=== PATIENT | male | born 2000 | race African-American/Black ===

== ENCOUNTER 2023-02-25 08:44 | Emergency (ER) | payer OTHER ==
[~2023-02-25] VITALS: Ht 188 cm; Wt 66.2 kg
[2023-02-25] MEDS ORDERED: Morphine 4mg INJECTION 4 MG/ML INJ IV STA (09:13)
[2023-02-25] MEDS ORDERED: KETOROLAC TROMETHAMINE 30 MG/ML VIAL IV STA (09:13)
[2023-02-25] MEDS ORDERED: ONDANSETRON HCL INJ 2MG/ML 2ML 2 MG/ML VIAL IV STA (09:13)
[2023-02-25] MEDS ORDERED: DEXTROSE 5%/0.45% SOD CHL 1,000 ML IV ONE (09:15)
[2023-02-25 09:19] LABS: BASOPHILS # (AUTO) 0.1 (0.0-0.1); BASOPHILS % 0.4 % (0.0-1.0); EOSINOPHILS # (AUTO) 0.1 (0.0-0.4); EOSINOPHILS % 0.5 % (0.0-6.0); HEMATOCRIT 27.6 % (38.2-49.6); HEMOGLOBIN 9.5 g/dL (14.0-18.0); LYMPHOCYTES # (AUTO) 2.1 (1.0-3.2); LYMPHOCYTES % 13.9 % (18.0-39.1); MEAN CORPUSCULAR HEMOGLOBIN 27.6 pg (28-32); MEAN CORPUSCULAR HGB CONC 34.4 g/dL (31-35); MEAN CORPUSCULAR VOLUME 80.2 fL (81-99); MONOCYTES # (AUTO) 1.4 (0.2-0.8); MONOCYTES % 9.4 % (4.4-11.3); NEUTROPHILS # (AUTO) 11.2 (2.1-6.9); NEUTROPHILS % 75.3 % (38.7-80.0); PLATELET COUNT 609 x10e3/uL (140-360); RED BLOOD COUNT 3.44 x10e6/uL (4.3-5.7); RED CELL DISTRIBUTION WIDTH 19.9 % (11.7-14.4)
[2023-02-25 09:34] LABS: CLARITY,URINE CLEAR (CLEAR); COLOR,URINE YELLOW (YELLOW)
[2023-02-25 09:35] LABS: KETONES,URINE NEGATIVE (NEGATIVE); LEUKOCYTE ESTERASE ,URINE NEGATIVE (NEGATIVE); NITRITE,URINE NEGATIVE (NEGATIVE); PROTEIN,URINE DIPSTICK NEGATIVE (NEGATIVE); URINE UROBILINOGEN 0.2 mg/dL (0.2 - 1)
[2023-02-25 09:36] LABS: AMPHETAMINES SCREEN,URINE NEGATIVE (NEGATIVE); BENZODIAZEPINES SCREEN,URINE NEGATIVE (NEGATIVE); PHENCYCLIDINE SCREEN,URINE NEGATIVE (NEGATIVE)
[2023-02-25 09:41] LABS: ALANINE AMINOTRANSFERASE 29 IU/L (0-55); ALBUMIN 3.8 g/dL (3.5-5.0); ALBUMIN/GLOBULIN RATIO 0.8 (0.8-2.0); ALKALINE PHOSPHATASE 77 IU/L (40-150); ANION GAP 14.6 mmol/L (8-16); BLOOD UREA NITROGEN 10 mg/dL (7-26); BUN/CREATININE RATIO 14 (6-25); CALCIUM 9.5 mg/dL (8.4-10.2); CARBON DIOXIDE 23 mmol/L (22-29); CHLORIDE 103 mmol/L (98-107); CREATININE, SERUM 0.74 mg/dL (0.72-1.25); GLUCOSE 96 mg/dL (74-118); POTASSIUM 4.6 mmol/L (3.5-5.1); SODIUM 136 mmol/L (136-145)
[2023-02-25 09:43] LABS: EPITHELIAL CELLS,URINE FEW /LPF
[2023-02-25 09:46] LABS: BACTERIA,URINE MODERATE /HPF
[2023-02-25] MEDS ORDERED: HYDROCODONE/APAP 7.5MG-325MG 1 EA TAB PO ONE (10:45)
[2023-02-25 11:18] VITALS: BP 124/55; PULSE 55; RESP 18; TEMP 98.2; O2SAT 100
== END 2023-02-25 11:19 | disposition home or self-care (01) ==
LOC: ER 08:47
DX: R50.9 Fever, unspecified (principal); D57.00 Hb-SS disease with crisis, unspecified
CPT/HCPCS: 36415; 71045; 80053; 80307; 81001; 84484; 85025; 85045; 87086; 93005; 99284; J1885; J2270; J2405

== ENCOUNTER 2023-06-25 21:18 | Inpatient (IN) | payer OTHER ==
[~2023-06-25] VITALS: Ht 182.9 cm; Wt 80.3 kg
[~2023-06-25 21:18] MED LIST: AUGMENTIN 500-1 EACH PO; FOLIC ACID0.8 MG PO; MOTRIN200 MG PO
[2023-06-25] MEDS ORDERED: SODIUM CHLORIDE 0.9% 1000ML 1,000 ML IV STA ×2 (21:24→21:54)
[2023-06-25] MEDS ORDERED: ONDANSETRON HCL INJ 2MG/ML 2ML 2 MG/ML VIAL IV STA (21:30)
[2023-06-25] MEDS ORDERED: Morphine 4mg INJECTION 4 MG/ML INJ IV STA (21:30)
[2023-06-25] MEDS ORDERED: Morphine 4mg INJECTION 4 MG/ML INJ ONE (21:39)
[2023-06-25] MEDS ORDERED: ACETAMINOPHEN 325 MG TAB PO ONE (22:00)
[2023-06-25 22:13] LABS: BASOPHILS % 0.2 % (0.0-1.0); HEMATOCRIT 29.3 % (38.2-49.6); HEMOGLOBIN 10.6 g/dL (14.0-18.0); LYMPHOCYTES # (AUTO) 1.5 (1.0-3.2); LYMPHOCYTES % 9.5 % (18.0-39.1); MEAN CORPUSCULAR HEMOGLOBIN 28.7 pg (28-32); MEAN CORPUSCULAR HGB CONC 36.2 g/dL (31-35); MEAN CORPUSCULAR VOLUME 79.4 fL (81-99); MONOCYTES % 12.9 % (4.4-11.3); NEUTROPHILS # (AUTO) 12.2 (2.1-6.9); NEUTROPHILS % 76.7 % (38.7-80.0); PLATELET COUNT 224 x10e3/uL (140-360); RED BLOOD COUNT 3.69 x10e6/uL (4.3-5.7); RED CELL DISTRIBUTION WIDTH 18.9 % (11.7-14.4); WHITE BLOOD COUNT 15.87 x10e3/uL (4.8-10.8)
[2023-06-25 22:30] LABS: ALBUMIN 4.2 g/dL (3.5-5.0); ALBUMIN/GLOBULIN RATIO 0.9 (0.8-2.0); ANION GAP 17.2 mmol/L (8-16); CALCIUM 9.4 mg/dL (8.4-10.2); CREATININE, SERUM 0.78 mg/dL (0.72-1.25); POTASSIUM 4.2 mmol/L (3.5-5.1)
[2023-06-25] MEDS ORDERED: FUROSEMIDE INJ 10 MG/ML 4 ML VIAL IV STA (22:44)
[2023-06-25] MEDS ORDERED: SODIUM CHLORIDE FLUSH 10 ML SYR INJ PRN (22:45)
[2023-06-25] MEDS: HYDROMORPHONE 1MG/1ML INJ IV PRN (23:06)
[2023-06-25] MEDS: LEVOFLOXACIN 750MG/D5W 150ML 150 ML IV SCH (23:14)
[2023-06-25] MEDS ORDERED: IBUPROFEN 400 MG TAB PO STA (23:39)
[2023-06-26] VITALS (12 sets, daily range): BP systolic 107–127; BP diastolic 56–68; PULSE 67–94; RESP 16–24; TEMP 97.7–103.1; O2SAT 95–99
[2023-06-26 01:48] LABS: CREATINE KINASE 44 IU/L (30-200)
[2023-06-26 07:53] LABS: BASOPHILS % 0.2 % (0.0-1.0); EOSINOPHILS % 0.1 % (0.0-6.0); HEMATOCRIT 25.5 % (38.2-49.6); HEMOGLOBIN 9.2 g/dL (14.0-18.0); LYMPHOCYTES # (AUTO) 3.5 (1.0-3.2); LYMPHOCYTES % 20.6 % (18.0-39.1); MEAN CORPUSCULAR HGB CONC 36.1 g/dL (31-35); MEAN CORPUSCULAR VOLUME 80.4 fL (81-99); MONOCYTES # (AUTO) 2.4 (0.2-0.8); MONOCYTES % 14.4 % (4.4-11.3); NEUTROPHILS # (AUTO) 10.8 (2.1-6.9); NEUTROPHILS % 64.3 % (38.7-80.0); PLATELET COUNT 229 x10e3/uL (140-360); RED BLOOD COUNT 3.17 x10e6/uL (4.3-5.7); RED CELL DISTRIBUTION WIDTH 18.1 % (11.7-14.4); WHITE BLOOD COUNT 16.83 x10e3/uL (4.8-10.8)
[2023-06-26 08:07] LABS: ALBUMIN 3.6 g/dL (3.5-5.0); ALBUMIN/GLOBULIN RATIO 0.8 (0.8-2.0); ANION GAP 15.4 mmol/L (8-16); CALCIUM 8.9 mg/dL (8.4-10.2); CREATININE, SERUM 1.08 mg/dL (0.72-1.25); POTASSIUM 4.4 mmol/L (3.5-5.1)
[2023-06-26 08:30] LABS: CREATINE KINASE 40 IU/L (30-200)
[2023-06-26] MEDS: HYDROMORPHONE 1MG/1ML INJ IV PRN ×3 (09:32→22:49)
[2023-06-26] MEDS: ONDANSETRON HCL INJ 2MG/ML 2ML 2 MG/ML VIAL IV PRN ×3 (09:32→22:49)
[2023-06-26] MEDS: ACETAMINOPHEN 325 MG TAB PO PRN (15:19)
[2023-06-26 15:29] LABS: CREATINE KINASE 113 IU/L (30-200)
[2023-06-26] MEDS: LEVOFLOXACIN 750MG/D5W 150ML 150 ML IV SCH (22:48)
[2023-06-27] VITALS (7 sets, daily range): BP systolic 117–133; BP diastolic 61–85; PULSE 67–100; RESP 16–18; TEMP 99.1–99.9; O2SAT 95–100
[2023-06-27] MEDS: ACETAMINOPHEN 325 MG TAB PO PRN ×3 (00:33→12:33)
[2023-06-27 05:00] LABS: BASOPHILS % 0.3 % (0.0-1.0); EOSINOPHILS % 0.1 % (0.0-6.0); HEMATOCRIT 25.4 % (38.2-49.6); HEMOGLOBIN 9.1 g/dL (14.0-18.0); LYMPHOCYTES # (AUTO) 3.6 (1.0-3.2); LYMPHOCYTES % 23.8 % (18.0-39.1); MEAN CORPUSCULAR HEMOGLOBIN 28.6 pg (28-32); MEAN CORPUSCULAR HGB CONC 35.8 g/dL (31-35); MEAN CORPUSCULAR VOLUME 79.9 fL (81-99); MONOCYTES # (AUTO) 2.2 (0.2-0.8); MONOCYTES % 14.5 % (4.4-11.3); NEUTROPHILS # (AUTO) 9.3 (2.1-6.9); NEUTROPHILS % 60.9 % (38.7-80.0); PLATELET COUNT 242 x10e3/uL (140-360); RED BLOOD COUNT 3.18 x10e6/uL (4.3-5.7); RED CELL DISTRIBUTION WIDTH 18.2 % (11.7-14.4)
[2023-06-27 05:18] LABS: ANION GAP 12.6 mmol/L (8-16); CALCIUM 9.1 mg/dL (8.4-10.2); CREATININE, SERUM 0.84 mg/dL (0.72-1.25); POTASSIUM 4.6 mmol/L (3.5-5.1)
[2023-06-27] MEDS: HYDROMORPHONE 1MG/1ML INJ IV PRN (06:46)
[2023-06-27] MEDS: ONDANSETRON HCL INJ 2MG/ML 2ML 2 MG/ML VIAL IV PRN (06:47)
[2023-06-27] MEDS ORDERED: SODIUM CHLORIDE 0.9% 1000ML 1,000 ML IV SCH (10:45)
[2023-06-27] MEDS: FOLIC ACID 1 MG TAB PO SCH (12:32)
[2023-06-27] MEDS: LEVOFLOXACIN 750MG/D5W 150ML 150 ML IV SCH (22:34)
[2023-06-28] VITALS (9 sets, daily range): BP systolic 114–126; BP diastolic 47–67; PULSE 61–86; RESP 16–19; TEMP 98.7–100.6; O2SAT 96–100
[2023-06-28] MEDS: ACETAMINOPHEN 325 MG TAB PO PRN (06:14)
[2023-06-28] MEDS: FOLIC ACID 1 MG TAB PO SCH (08:17)
[2023-06-28] MEDS: HYDROMORPHONE 1MG/1ML INJ IV PRN (20:54)
[2023-06-28] MEDS: ONDANSETRON HCL INJ 2MG/ML 2ML 2 MG/ML VIAL IV PRN (20:54)
[2023-06-29] MEDS: LEVOFLOXACIN 750MG/D5W 150ML 150 ML IV SCH (00:05)
[2023-06-29 03:18] VITALS: BP 114/60; PULSE 67; RESP 18; TEMP 98.7; O2SAT 99
[2023-06-29 08:12] VITALS: BP 119/56; PULSE 63; RESP 18; TEMP 99.2; O2SAT 100
[2023-06-29] MEDS: FOLIC ACID 1 MG TAB PO SCH (09:22)
[2023-06-29 09:55] VITALS: BP 119/56; PULSE 63; RESP 18; TEMP 99.2; O2SAT 100
[2023-06-29] MEDS ORDERED: ACETAMINOPHEN325 M1 PO (12:28)
[2023-06-29] MEDS ORDERED: LEVOFLOXACIN250 MG PO (12:33)
[2023-06-29 13:46] LABS: ANION GAP 15.4 mmol/L (8-16); CALCIUM 9.3 mg/dL (8.4-10.2); CREATININE, SERUM 0.78 mg/dL (0.72-1.25); POTASSIUM 4.4 mmol/L (3.5-5.1)
[2023-06-29 13:48] LABS: BASOPHILS # (AUTO) 0.1 (0.0-0.1); BASOPHILS % 0.9 % (0.0-1.0); EOSINOPHILS # (AUTO) 0.1 (0.0-0.4); EOSINOPHILS % 1.4 % (0.0-6.0); HEMATOCRIT 27.2 % (38.2-49.6); HEMOGLOBIN 9.3 g/dL (14.0-18.0); LYMPHOCYTES # (AUTO) 3.5 (1.0-3.2); LYMPHOCYTES % 37.9 % (18.0-39.1); MEAN CORPUSCULAR HEMOGLOBIN 27.5 pg (28-32); MEAN CORPUSCULAR HGB CONC 34.2 g/dL (31-35); MEAN CORPUSCULAR VOLUME 80.5 fL (81-99); MONOCYTES # (AUTO) 0.9 (0.2-0.8); MONOCYTES % 10.2 % (4.4-11.3); NEUTROPHILS # (AUTO) 4.5 (2.1-6.9); NEUTROPHILS % 49.3 % (38.7-80.0); PLATELET COUNT 257 x10e3/uL (140-360); RED BLOOD COUNT 3.38 x10e6/uL (4.3-5.7); RED CELL DISTRIBUTION WIDTH 19.1 % (11.7-14.4); WHITE BLOOD COUNT 9.21 x10e3/uL (4.8-10.8)
[2023-06-29] MEDS ORDERED: LEVOFLOXACIN 250 MG TAB PO SCH (22:00)
== END 2023-06-29 15:03 | disposition home or self-care (01) | DRG 812 ==
LOC: ER 21:23 → ERHOLD 22:45 → MED/SURG 06-26 01:52
PROVIDERS: ADMIT Internal Medicine; ATTEND Internal Medicine
DX: D57.01 Hb-SS disease with acute chest syndrome (principal); D72.829 Elevated white blood cell count, unspecified; M54.9 Dorsalgia, unspecified; R06.00 Dyspnea, unspecified; Z59.6 Low income; Z20.822 Contact with and (suspected) exposure to COVID-19
CPT/HCPCS: 36415; 71045; 80048; 80053; 82550; 83605; 83690; 83880; 84484; 85025; 85045; 87040; 93005; 93306; 94799; 99284; J1170; J1940; J2270; J2405; J7030; J7050; U0002

== ENCOUNTER 2023-08-06 07:40 | Emergency (ER) | payer OTHER ==
[~2023-08-06] VITALS: Ht 182.9 cm; Wt 80.3 kg
[~2023-08-06 07:40] MED LIST changes: +ACETAMINOPHEN325 M1 PO; +LEVOFLOXACIN250 MG PO
[2023-08-06 08:20] VITALS: O2SAT 99
[2023-08-06] MEDS ORDERED: KETOROLAC TROMETHAMINE 30 MG/ML VIAL IV STA (08:31)
[2023-08-06] MEDS ORDERED: HYDROCODONE/APAP 7.5MG-325MG 1 EA TAB PO STA (08:31)
[2023-08-06] MEDS ORDERED: SODIUM CHLORIDE 0.9% 1000ML 1,000 ML IV SCH (08:45)
[2023-08-06] MEDS ORDERED: Morphine 4mg INJECTION 4 MG/ML INJ IV ONE (08:45)
[2023-08-06 09:13] LABS: BASOPHILS # (AUTO) 0.1 (0.0-0.1); BASOPHILS % 0.6 % (0.0-1.0); EOSINOPHILS # (AUTO) 0.1 (0.0-0.4); EOSINOPHILS % 0.6 % (0.0-6.0); HEMATOCRIT 31.5 % (38.2-49.6); HEMOGLOBIN 11.1 g/dL (14.0-18.0); LYMPHOCYTES % 18.8 % (18.0-39.1); MEAN CORPUSCULAR HEMOGLOBIN 28.8 pg (28-32); MEAN CORPUSCULAR HGB CONC 35.2 g/dL (31-35); MEAN CORPUSCULAR VOLUME 81.8 fL (81-99); MONOCYTES # (AUTO) 1.2 (0.2-0.8); MONOCYTES % 10.8 % (4.4-11.3); NEUTROPHILS # (AUTO) 7.4 (2.1-6.9); NEUTROPHILS % 68.8 % (38.7-80.0); PLATELET COUNT 399 x10e3/uL (140-360); RED BLOOD COUNT 3.85 x10e6/uL (4.3-5.7); RED CELL DISTRIBUTION WIDTH 17.3 % (11.7-14.4); WHITE BLOOD COUNT 10.77 x10e3/uL (4.8-10.8)
[2023-08-06 09:30] LABS: ANION GAP 14.9 mmol/L (8-16); CALCIUM 9.6 mg/dL (8.4-10.2); CREATININE, SERUM 0.71 mg/dL (0.72-1.25); POTASSIUM 3.9 mmol/L (3.5-5.1)
== END 2023-08-06 10:18 | disposition home or self-care (01) ==
LOC: ER 07:48
DX: D57.819 Other sickle-cell disorders with crisis, unspecified (principal); M25.512 Pain in left shoulder
CPT/HCPCS: 36415; 80048; 85025; 85045; 99284; J1885; J2270; J7030